=== PATIENT | female | born 1955 | race Caucasian/White ===

== ENCOUNTER 2021-01-06 09:39 | Outpatient (CLI) | payer MEDICARE | END 2021-01-06 09:40 | disposition home or self-care (01) | LOC: CSHWCC 09:39 | PROVIDERS: ATTEND Nurse Practitioner Family | DX: I87.2 Venous insufficiency (chronic) (peripheral) (principal); T81.30XD Disruption of wound, unspecified, subsequent encounter; S81.801D Unspecified open wound, right lower leg, subsequent encounter; S51.801D Unspecified open wound of right forearm, subsequent encounter; G89.29 Other chronic pain; J45.909 Unspecified asthma, uncomplicated; L76.32 Postprocedural hematoma of skin and subcutaneous tissue following other procedure; M06.9 Rheumatoid arthritis, unspecified; R60.0 Localized edema; X58.XXXD Exposure to other specified factors, subsequent encounter | CPT/HCPCS: 11042; 11045; 29581; 97139; G0463; 99213 ==

== ENCOUNTER 2021-01-09 11:34 | Outpatient (CLI) | payer MEDICARE | END 2021-01-09 11:35 | disposition home or self-care (01) | LOC: CSHWCC 11:34 | PROVIDERS: ATTEND Nurse Practitioner Family | DX: I87.2 Venous insufficiency (chronic) (peripheral) (principal); T81.30XD Disruption of wound, unspecified, subsequent encounter; S51.801D Unspecified open wound of right forearm, subsequent encounter; S81.801D Unspecified open wound, right lower leg, subsequent encounter; L76.32 Postprocedural hematoma of skin and subcutaneous tissue following other procedure; R60.0 Localized edema; G89.29 Other chronic pain; J45.909 Unspecified asthma, uncomplicated; M06.9 Rheumatoid arthritis, unspecified; X58.XXXD Exposure to other specified factors, subsequent encounter | CPT/HCPCS: 11042; 11045; 29581 ==

== ENCOUNTER 2021-01-12 09:02 | Outpatient (CLI) | payer MEDICARE | END 2021-01-12 09:03 | disposition home or self-care (01) | LOC: CSHWCC 09:02 | PROVIDERS: ATTEND Nurse Practitioner Family | DX: T81.30XD Disruption of wound, unspecified, subsequent encounter (principal); S81.801D Unspecified open wound, right lower leg, subsequent encounter; G89.29 Other chronic pain; I87.2 Venous insufficiency (chronic) (peripheral); J45.909 Unspecified asthma, uncomplicated; L76.32 Postprocedural hematoma of skin and subcutaneous tissue following other procedure; M06.9 Rheumatoid arthritis, unspecified; X58.XXXD Exposure to other specified factors, subsequent encounter | CPT/HCPCS: 29581; 99213; G0463 ==

== ENCOUNTER 2021-01-17 11:11 | Outpatient (CLI) | payer MEDICARE | END 2021-01-17 11:12 | disposition home or self-care (01) | LOC: CSHWCC 11:11 | PROVIDERS: ATTEND Nurse Practitioner Family | DX: S81.801D Unspecified open wound, right lower leg, subsequent encounter (principal); T81.30XD Disruption of wound, unspecified, subsequent encounter; S51.801D Unspecified open wound of right forearm, subsequent encounter; R60.0 Localized edema; G89.29 Other chronic pain; I87.2 Venous insufficiency (chronic) (peripheral); J45.909 Unspecified asthma, uncomplicated; L76.32 Postprocedural hematoma of skin and subcutaneous tissue following other procedure; M06.9 Rheumatoid arthritis, unspecified; X58.XXXD Exposure to other specified factors, subsequent encounter | CPT/HCPCS: 11042; 11045; 29581; 97139; G0463; 99213 ==

== ENCOUNTER 2021-01-19 09:44 | Outpatient (CLI) | payer MEDICARE | END 2021-01-19 09:45 | disposition home or self-care (01) | LOC: CSHWCC 09:44 | PROVIDERS: ATTEND Nurse Practitioner Family | DX: S81.801D Unspecified open wound, right lower leg, subsequent encounter (principal); T81.30XD Disruption of wound, unspecified, subsequent encounter; S51.801D Unspecified open wound of right forearm, subsequent encounter; I87.2 Venous insufficiency (chronic) (peripheral); G89.29 Other chronic pain; J45.909 Unspecified asthma, uncomplicated; L76.32 Postprocedural hematoma of skin and subcutaneous tissue following other procedure; M06.9 Rheumatoid arthritis, unspecified; X58.XXXD Exposure to other specified factors, subsequent encounter | CPT/HCPCS: 29581; 97139; G0463; 99212 ==

== ENCOUNTER 2021-01-24 09:39 | Outpatient (CLI) | payer MEDICARE | END 2021-01-24 09:40 | disposition home or self-care (01) | LOC: CSHWCC 09:39 | PROVIDERS: ATTEND Nurse Practitioner Family | DX: I87.2 Venous insufficiency (chronic) (peripheral) (principal); T81.30XD Disruption of wound, unspecified, subsequent encounter; S81.801D Unspecified open wound, right lower leg, subsequent encounter; S51.801D Unspecified open wound of right forearm, subsequent encounter; L76.32 Postprocedural hematoma of skin and subcutaneous tissue following other procedure; R60.0 Localized edema; G89.29 Other chronic pain; J45.909 Unspecified asthma, uncomplicated; M06.9 Rheumatoid arthritis, unspecified; X58.XXXD Exposure to other specified factors, subsequent encounter | CPT/HCPCS: 11042; 11045; 29581; 97139; G0463; 99212 ==

== ENCOUNTER 2021-01-26 10:50 | Outpatient (CLI) | payer MEDICARE | END 2021-01-26 10:51 | disposition home or self-care (01) | LOC: CSHWCC 10:50 | PROVIDERS: ATTEND Nurse Practitioner Family | DX: I87.2 Venous insufficiency (chronic) (peripheral) (principal); S81.801D Unspecified open wound, right lower leg, subsequent encounter; S51.801D Unspecified open wound of right forearm, subsequent encounter; T81.30XD Disruption of wound, unspecified, subsequent encounter; R60.0 Localized edema; G89.29 Other chronic pain; J45.909 Unspecified asthma, uncomplicated; L76.32 Postprocedural hematoma of skin and subcutaneous tissue following other procedure; M06.9 Rheumatoid arthritis, unspecified; X58.XXXD Exposure to other specified factors, subsequent encounter | CPT/HCPCS: 29581; 97139; G0463; 99213 ==

== ENCOUNTER 2021-01-31 12:20 | Outpatient (CLI) | payer MEDICARE | END 2021-01-31 12:21 | disposition home or self-care (01) | LOC: CSHWCC 12:20 | PROVIDERS: ATTEND Nurse Practitioner Family | DX: T81.30XS Disruption of wound, unspecified, sequela (principal); S81.801D Unspecified open wound, right lower leg, subsequent encounter; G89.29 Other chronic pain; I87.2 Venous insufficiency (chronic) (peripheral); J45.909 Unspecified asthma, uncomplicated; L76.32 Postprocedural hematoma of skin and subcutaneous tissue following other procedure; M06.9 Rheumatoid arthritis, unspecified; R60.0 Localized edema; X58.XXXS Exposure to other specified factors, sequela | CPT/HCPCS: 29581; 97139; G0463; 99213 ==

== ENCOUNTER 2021-02-02 11:25 | Outpatient (CLI) | payer MEDICARE | END 2021-02-02 11:26 | disposition home or self-care (01) | LOC: CSHWCC 11:25 | PROVIDERS: ATTEND Nurse Practitioner Family | DX: S81.801D Unspecified open wound, right lower leg, subsequent encounter (principal); S51.801D Unspecified open wound of right forearm, subsequent encounter; T81.30XD Disruption of wound, unspecified, subsequent encounter; R60.0 Localized edema; G89.29 Other chronic pain; I87.2 Venous insufficiency (chronic) (peripheral); J45.909 Unspecified asthma, uncomplicated; L76.32 Postprocedural hematoma of skin and subcutaneous tissue following other procedure; M06.9 Rheumatoid arthritis, unspecified; X58.XXXD Exposure to other specified factors, subsequent encounter | CPT/HCPCS: 29581; 97139; G0463; 99213 ==

== ENCOUNTER 2021-02-06 11:52 | Outpatient (CLI) | payer MEDICARE | END 2021-02-06 11:53 | disposition home or self-care (01) | LOC: CSHWCC 11:52 | PROVIDERS: ATTEND Nurse Practitioner Family | DX: S81.801D Unspecified open wound, right lower leg, subsequent encounter (principal); R60.0 Localized edema; G89.29 Other chronic pain; I87.2 Venous insufficiency (chronic) (peripheral); J45.909 Unspecified asthma, uncomplicated; L76.32 Postprocedural hematoma of skin and subcutaneous tissue following other procedure; M06.9 Rheumatoid arthritis, unspecified; S51.801D Unspecified open wound of right forearm, subsequent encounter; T81.30XD Disruption of wound, unspecified, subsequent encounter; X58.XXXD Exposure to other specified factors, subsequent encounter | CPT/HCPCS: 29581; 99213; G0463 ==

== ENCOUNTER 2021-02-09 08:46 | Outpatient (CLI) | payer MEDICARE | END 2021-02-09 08:47 | disposition home or self-care (01) | LOC: CSHWCC 08:46 | PROVIDERS: ATTEND Nurse Practitioner Family | DX: I87.2 Venous insufficiency (chronic) (peripheral) (principal); T81.30XD Disruption of wound, unspecified, subsequent encounter; S81.801D Unspecified open wound, right lower leg, subsequent encounter; S51.801D Unspecified open wound of right forearm, subsequent encounter; L76.32 Postprocedural hematoma of skin and subcutaneous tissue following other procedure; J45.909 Unspecified asthma, uncomplicated; M06.9 Rheumatoid arthritis, unspecified; G89.29 Other chronic pain; X58.XXXD Exposure to other specified factors, subsequent encounter | CPT/HCPCS: 29581; 99214; G0463 ==

== ENCOUNTER 2021-02-13 15:30 | Outpatient (CLI) | payer MEDICARE | END 2021-02-13 15:31 | disposition home or self-care (01) | LOC: CSHWCC 15:30 | PROVIDERS: ATTEND Nurse Practitioner Family | DX: I87.2 Venous insufficiency (chronic) (peripheral) (principal); T81.30XD Disruption of wound, unspecified, subsequent encounter; S81.801D Unspecified open wound, right lower leg, subsequent encounter; S51.801D Unspecified open wound of right forearm, subsequent encounter; L76.32 Postprocedural hematoma of skin and subcutaneous tissue following other procedure; R60.0 Localized edema; G89.29 Other chronic pain; J45.909 Unspecified asthma, uncomplicated; M06.9 Rheumatoid arthritis, unspecified; X58.XXXD Exposure to other specified factors, subsequent encounter | CPT/HCPCS: 29581; 99213; G0463 ==

== ENCOUNTER 2021-02-16 11:21 | Outpatient (CLI) | payer MEDICARE | END 2021-02-16 11:22 | disposition home or self-care (01) | LOC: CSHWCC 11:21 | PROVIDERS: ATTEND Nurse Practitioner Family | DX: S81.801D Unspecified open wound, right lower leg, subsequent encounter (principal); T81.30XD Disruption of wound, unspecified, subsequent encounter; S51.801D Unspecified open wound of right forearm, subsequent encounter; R60.0 Localized edema; G89.29 Other chronic pain; I87.2 Venous insufficiency (chronic) (peripheral); J45.909 Unspecified asthma, uncomplicated; L76.32 Postprocedural hematoma of skin and subcutaneous tissue following other procedure; M06.9 Rheumatoid arthritis, unspecified; X58.XXXD Exposure to other specified factors, subsequent encounter ==

== ENCOUNTER 2021-02-20 09:05 | Outpatient (CLI) | payer MEDICARE | END 2021-02-20 09:06 | disposition home or self-care (01) | LOC: CSHWCC 09:05 | PROVIDERS: ATTEND Nurse Practitioner Family | DX: S81.801D Unspecified open wound, right lower leg, subsequent encounter (principal); T81.30XD Disruption of wound, unspecified, subsequent encounter; S51.801D Unspecified open wound of right forearm, subsequent encounter; R60.0 Localized edema; G89.29 Other chronic pain; I87.2 Venous insufficiency (chronic) (peripheral); J45.909 Unspecified asthma, uncomplicated; L76.32 Postprocedural hematoma of skin and subcutaneous tissue following other procedure; M06.9 Rheumatoid arthritis, unspecified; X58.XXXD Exposure to other specified factors, subsequent encounter ==

== ENCOUNTER 2021-03-01 12:16 | Outpatient (CLI) | payer MEDICARE | END 2021-03-01 12:17 | disposition home or self-care (01) | LOC: CSHWCC 12:16 | PROVIDERS: ATTEND Nurse Practitioner Family | DX: T81.30XD Disruption of wound, unspecified, subsequent encounter (principal); S81.801D Unspecified open wound, right lower leg, subsequent encounter; S51.801D Unspecified open wound of right forearm, subsequent encounter; R60.0 Localized edema; I87.2 Venous insufficiency (chronic) (peripheral); J45.909 Unspecified asthma, uncomplicated; L76.32 Postprocedural hematoma of skin and subcutaneous tissue following other procedure; M06.9 Rheumatoid arthritis, unspecified; X58.XXXD Exposure to other specified factors, subsequent encounter | CPT/HCPCS: 29581; 99213; G0463 ==

== ENCOUNTER 2021-05-24 09:27 | Outpatient (CLI) | payer MEDICARE | END 2021-05-24 09:28 | disposition home or self-care (01) | LOC: CSHWCC 09:27 | PROVIDERS: ATTEND Nurse Practitioner Family | DX: T81.30XS Disruption of wound, unspecified, sequela (principal); S81.801D Unspecified open wound, right lower leg, subsequent encounter; R60.0 Localized edema; I87.2 Venous insufficiency (chronic) (peripheral); G89.29 Other chronic pain; J45.909 Unspecified asthma, uncomplicated; L76.32 Postprocedural hematoma of skin and subcutaneous tissue following other procedure; M06.9 Rheumatoid arthritis, unspecified; X58.XXXS Exposure to other specified factors, sequela | CPT/HCPCS: 99212; G0463 ==

== ENCOUNTER 2021-08-04 10:49 | Outpatient (CLI) | payer MEDICARE | END 2021-08-04 10:50 | disposition home or self-care (01) | LOC: CSHWCC 10:49 | PROVIDERS: ATTEND Nurse Practitioner Family | DX: S51.801D Unspecified open wound of right forearm, subsequent encounter (principal); S41.002D Unspecified open wound of left shoulder, subsequent encounter; T81.30XD Disruption of wound, unspecified, subsequent encounter; B02.9 Zoster without complications; G89.29 Other chronic pain; I87.2 Venous insufficiency (chronic) (peripheral); J45.909 Unspecified asthma, uncomplicated; L76.32 Postprocedural hematoma of skin and subcutaneous tissue following other procedure; M06.9 Rheumatoid arthritis, unspecified; X58.XXXD Exposure to other specified factors, subsequent encounter | CPT/HCPCS: 97139; G0463; 99213 ==

== ENCOUNTER 2021-08-11 09:22 | Outpatient (CLI) | payer MEDICARE | END 2021-08-11 09:23 | disposition home or self-care (01) | LOC: CSHWCC 09:22 | PROVIDERS: ATTEND Nurse Practitioner Family | DX: T81.30XD Disruption of wound, unspecified, subsequent encounter (principal); S51.801D Unspecified open wound of right forearm, subsequent encounter; S41.002D Unspecified open wound of left shoulder, subsequent encounter; L76.32 Postprocedural hematoma of skin and subcutaneous tissue following other procedure; M06.9 Rheumatoid arthritis, unspecified; B02.9 Zoster without complications; I87.2 Venous insufficiency (chronic) (peripheral); G89.29 Other chronic pain; X58.XXXD Exposure to other specified factors, subsequent encounter | CPT/HCPCS: 97139; G0463; 99213 ==

== ENCOUNTER 2021-08-18 09:43 | Outpatient (CLI) | payer MEDICARE | END 2021-08-18 09:44 | disposition home or self-care (01) | LOC: CSHWCC 09:43 | PROVIDERS: ATTEND Nurse Practitioner Family | DX: T81.30XD Disruption of wound, unspecified, subsequent encounter (principal); S51.801D Unspecified open wound of right forearm, subsequent encounter; S41.002D Unspecified open wound of left shoulder, subsequent encounter; B02.9 Zoster without complications; G89.29 Other chronic pain; I87.2 Venous insufficiency (chronic) (peripheral); J45.909 Unspecified asthma, uncomplicated; L76.32 Postprocedural hematoma of skin and subcutaneous tissue following other procedure; M06.9 Rheumatoid arthritis, unspecified; X58.XXXD Exposure to other specified factors, subsequent encounter | CPT/HCPCS: 97139; G0463; 99213 ==

== ENCOUNTER 2021-09-01 08:20 | Outpatient (CLI) | payer MEDICARE | END 2021-09-01 08:21 | disposition home or self-care (01) | LOC: CSHWCC 08:20 | PROVIDERS: ATTEND Nurse Practitioner Family | DX: T81.30XD Disruption of wound, unspecified, subsequent encounter (principal); S41.002D Unspecified open wound of left shoulder, subsequent encounter; S51.801D Unspecified open wound of right forearm, subsequent encounter; B02.9 Zoster without complications; G89.29 Other chronic pain; I87.2 Venous insufficiency (chronic) (peripheral); J45.909 Unspecified asthma, uncomplicated; L76.32 Postprocedural hematoma of skin and subcutaneous tissue following other procedure; M06.9 Rheumatoid arthritis, unspecified; X58.XXXD Exposure to other specified factors, subsequent encounter | CPT/HCPCS: 99212; G0463 ==

== ENCOUNTER 2021-09-26 10:06 | Outpatient (CLI) | payer MEDICARE | END 2021-09-26 10:07 | disposition home or self-care (01) | LOC: CSHMAMMO 10:06 | PROVIDERS: ATTEND Family Medicine | DX: Z12.31 Encounter for screening mammogram for malignant neoplasm of breast (principal) | CPT/HCPCS: 77063; 77067 ==

== ENCOUNTER 2023-01-29 11:53 | Outpatient (CLI) | payer MEDICARE, OTHER | END 2023-01-29 11:54 | disposition home or self-care (01) | LOC: CSHMAMMO 11:53 | PROVIDERS: ATTEND Family Medicine | DX: Z12.31 Encounter for screening mammogram for malignant neoplasm of breast (principal); Z91.89 Other specified personal risk factors, not elsewhere classified | CPT/HCPCS: 77063; 77067 ==

== ENCOUNTER 2023-03-20 12:51 | Outpatient (CLI) | payer MEDICARE, OTHER | END 2023-03-20 12:52 | disposition home or self-care (01) | LOC: CSHRAD 12:51 | PROVIDERS: ATTEND Internal Medicine Rheumatology | DX: M25.551 Pain in right hip (principal); M81.0 Age-related osteoporosis without current pathological fracture ==

== ENCOUNTER 2023-03-25 13:50 | Outpatient (CLI) | payer MEDICARE, OTHER | END 2023-03-25 13:51 | disposition home or self-care (01) | LOC: CSHWCC 13:50 | PROVIDERS: ATTEND Nurse Practitioner Family | DX: S71.102D Unspecified open wound, left thigh, subsequent encounter (principal) | CPT/HCPCS: 11042; 97139; G0463; 99213 ==

== ENCOUNTER 2023-04-09 12:59 | Outpatient (CLI) | payer MEDICARE, OTHER | END 2023-04-09 13:00 | disposition home or self-care (01) | LOC: CSHWCC 12:59 | PROVIDERS: ATTEND Nurse Practitioner Family | DX: S71.102D Unspecified open wound, left thigh, subsequent encounter (principal) | CPT/HCPCS: 97597 ==

== ENCOUNTER 2023-05-27 12:11 | Outpatient (CLI) | payer MEDICARE, OTHER | END 2023-05-27 12:12 | disposition home or self-care (01) | LOC: CSHRAD 12:11 | PROVIDERS: ATTEND Internal Medicine Rheumatology | DX: M25.522 Pain in left elbow (principal) ==

== ENCOUNTER 2023-07-20 17:22 | Emergency (ER) | payer MEDICARE, OTHER ==
[2023-07-20] MEDS ORDERED: Morphine 4 MG/ML VIAL ONE ×3 (18:02→18:53)
[2023-07-20 18:29] LABS: #Eosinphils 0.1 10x3/uL (0.0-0.5); #Monocytes 0.8 10x3/uL (0.0-1.1); #Neutrophils 4.2 10x3/uL (1.5-8.4); %Basophils 0.4 % (0.0-2.0); %Eosinophils 1.8 % (0.0-6.0); %Lymphocytes 26.6 % (18.0-47.0); %Monocytes 11.8 % (0.0-10.0); %Neutrophils 59.3 % (40.0-75.0); Hematocrit 39.6 % (34.9-44.5); Hemoglobin 13.1 g/dL (12.0-15.5); Mean Corpuscular HGB CONC 33.1 g/dL (32.0-36.0); Mean Corpuscular Hemoglobin 28.5 pg (27.0-33.0); Mean Corpuscular Volume 86.3 fl (81.6-98.3); Mean Platelet Volume 10.1 fl (7.4-10.4); Platelet Count 320 10x3/uL (150-450); RBC Distribution Width 14.1 % (11.5-14.5); Red Blood Cell (RBC) Count 4.59 10x6/uL (3.90-5.03)
[2023-07-20] MEDS ORDERED: Lidocaine 1% (PF) 30 ML VIAL ONE (18:29)
[2023-07-20 18:40] LABS: ALT (SGPT) 22 U/L (8-55); AST (SGOT) 30 U/L (5-34); Albumin 3.9 g/dL (3.4-4.8); Alkaline Phosphatase 105 U/L (40-110); Anion Gap 17 mmol/L (10-20); BUN (Urea Nitrogen) 17 mg/dL (9.8-20.1); Bilirubin, Total 0.3 mg/dL (0.2-1.2); Calc. Creatinine Clearance 0 mL/min (70-130); Carbon Dioxide 24 mmol/L (23-31); Chloride 103 mmol/L (98-107); Estimated GFR 72; Globulin 2.9 g/dL (2.4-3.5); Glucose 103 mg/dL (80-115); Magnesium 2.2 mg/dL (1.6-2.6); Potassium 3.9 mmol/L (3.5-5.1); Protein, Total 6.8 g/dL (5.8-8.1); Sodium 140 mmol/L (136-145)
[2023-07-20] MEDS ORDERED: Lidocaine 1% w/Epinephrine 1:200K 30 ML VIAL ONE (18:57)
[2023-07-20] MEDS ORDERED: CEFAZOLIN 2 GM VIAL ONE (19:17)
[2023-07-20] MEDS ORDERED: Ondansetron PF 4 MG/2 ML Vial ONE (20:30)
== END 2023-07-20 21:02 | disposition home or self-care (01) ==
LOC: CSHERS 17:22
DX: S80.12XA Contusion of left lower leg, initial encounter (principal); D68.32 Hemorrhagic disorder due to extrinsic circulating anticoagulants; I48.91 Unspecified atrial fibrillation; I10 Essential (primary) hypertension; M06.9 Rheumatoid arthritis, unspecified; J45.909 Unspecified asthma, uncomplicated; W22.8XXA Striking against or struck by other objects, initial encounter; Y93.89 Activity, other specified; Z79.01 Long term (current) use of anticoagulants; Z79.899 Other long term (current) drug therapy
CPT/HCPCS: 10060; 80053; 83735; 85025; 86850; 86900; 86901; 96365; 96375; 96376; J2001; J2270; J2405

== ENCOUNTER 2023-07-26 10:19 | Outpatient (CLI) | payer MEDICARE, OTHER | END 2023-07-26 10:20 | disposition home or self-care (01) | LOC: CSHWCC 10:19 | PROVIDERS: ATTEND Physician Assistant | DX: T14.8XXD Other injury of unspecified body region, subsequent encounter (principal); Z79.01 Long term (current) use of anticoagulants | CPT/HCPCS: 99212; G0463 ==

== ENCOUNTER 2023-07-29 09:00 | Outpatient (CLI) | payer MEDICARE, OTHER | END 2023-07-29 09:01 | disposition home or self-care (01) | LOC: CSHWCC 09:00 | PROVIDERS: ATTEND Physician Assistant | DX: T14.8XXD Other injury of unspecified body region, subsequent encounter (principal); Z79.01 Long term (current) use of anticoagulants | CPT/HCPCS: 97602 ==

== ENCOUNTER 2023-07-31 09:09 | Outpatient (CLI) | payer MEDICARE, OTHER | END 2023-07-31 09:10 | disposition home or self-care (01) | LOC: CSHWCC 09:09 | PROVIDERS: ATTEND Physician Assistant | DX: T81.33XD Disruption of traumatic injury wound repair, subsequent encounter (principal); Z79.01 Long term (current) use of anticoagulants | CPT/HCPCS: 97602 ==

== ENCOUNTER 2023-08-02 14:16 | Outpatient (CLI) | payer MEDICARE, OTHER | END 2023-08-02 14:17 | disposition home or self-care (01) | LOC: CSHWCC 14:16 | PROVIDERS: ATTEND Physician Assistant | DX: T81.33XD Disruption of traumatic injury wound repair, subsequent encounter (principal); T14.8XXD Other injury of unspecified body region, subsequent encounter; Z79.01 Long term (current) use of anticoagulants | CPT/HCPCS: 97597; 97598 ==

== ENCOUNTER 2023-08-05 09:15 | Outpatient (CLI) | payer MEDICARE, OTHER | END 2023-08-05 09:16 | disposition home or self-care (01) | LOC: CSHWCC 09:15 | PROVIDERS: ATTEND Physician Assistant | DX: T14.8XXD Other injury of unspecified body region, subsequent encounter (principal); Z79.01 Long term (current) use of anticoagulants | CPT/HCPCS: 97597; 97598 ==

== ENCOUNTER 2023-08-05 09:17 | Outpatient (CLI) | payer MEDICARE, OTHER | END 2023-08-05 09:18 | disposition home or self-care (01) | LOC: CSHWCC 09:17 | PROVIDERS: ATTEND Physician Assistant | DX: T14.8XXD Other injury of unspecified body region, subsequent encounter (principal); Z79.01 Long term (current) use of anticoagulants | CPT/HCPCS: 97597; G0463; 97598; 99213 ==

== ENCOUNTER → 2023-08-07 | Outpatient (CLI) | payer MEDICARE, OTHER | LOC: CSHWCC 08:00 | PROVIDERS: ATTEND Physician Assistant | DX: T14.8XXA Other injury of unspecified body region, initial encounter (principal); Z79.01 Long term (current) use of anticoagulants | CPT/HCPCS: 97597; 97598 ==

== ENCOUNTER 2023-08-09 08:07 | Outpatient (CLI) | payer MEDICARE, OTHER | END 2023-08-09 08:08 | disposition home or self-care (01) | LOC: CSHWCC 08:07 | PROVIDERS: ATTEND Physician Assistant | DX: T14.8XXD Other injury of unspecified body region, subsequent encounter (principal) | CPT/HCPCS: 29581 ==

== ENCOUNTER 2023-08-13 08:21 | Outpatient (CLI) | payer MEDICARE, OTHER | END 2023-08-13 08:22 | disposition home or self-care (01) | LOC: CSHWCC 08:21 | PROVIDERS: ATTEND Physician Assistant | DX: Z51.81 Encounter for therapeutic drug level monitoring (principal); T14.8XXA Other injury of unspecified body region, initial encounter; Z79.01 Long term (current) use of anticoagulants | CPT/HCPCS: 29581 ==

== ENCOUNTER 2023-08-15 08:09 | Outpatient (CLI) | payer MEDICARE, OTHER | END 2023-08-15 08:10 | disposition home or self-care (01) | LOC: CSHWCC 08:09 | PROVIDERS: ATTEND Physician Assistant | DX: T14.8XXD Other injury of unspecified body region, subsequent encounter (principal); M05.69 Rheumatoid arthritis of multiple sites with involvement of other organs and systems; Z79.01 Long term (current) use of anticoagulants | CPT/HCPCS: 97597 ==

== ENCOUNTER 2023-08-20 10:35 | Outpatient (CLI) | payer MEDICARE, OTHER | END 2023-08-20 10:36 | disposition home or self-care (01) | LOC: CSHWCC 10:35 | PROVIDERS: ATTEND Physician Assistant | DX: T14.8XXD Other injury of unspecified body region, subsequent encounter (principal); M05.69 Rheumatoid arthritis of multiple sites with involvement of other organs and systems; Z79.01 Long term (current) use of anticoagulants | CPT/HCPCS: 29581 ==

== ENCOUNTER 2023-08-26 08:07 | Outpatient (CLI) | payer MEDICARE, OTHER | END 2023-08-26 08:08 | disposition home or self-care (01) | LOC: CSHWCC 08:07 | PROVIDERS: ATTEND Preventive Medicine Undersea and Hyperbaric Medicine | DX: T14.8XXD Other injury of unspecified body region, subsequent encounter (principal); M05.69 Rheumatoid arthritis of multiple sites with involvement of other organs and systems; Z79.01 Long term (current) use of anticoagulants | CPT/HCPCS: 29581 ==

== ENCOUNTER 2023-08-29 10:08 | Outpatient (CLI) | payer MEDICARE, OTHER | END 2023-08-29 10:09 | disposition home or self-care (01) | LOC: CSHWCC 10:08 | PROVIDERS: ATTEND Preventive Medicine Undersea and Hyperbaric Medicine | DX: T14.8XXD Other injury of unspecified body region, subsequent encounter (principal); M05.69 Rheumatoid arthritis of multiple sites with involvement of other organs and systems; Z79.01 Long term (current) use of anticoagulants | CPT/HCPCS: 29581 ==

== ENCOUNTER 2023-09-03 11:32 | Outpatient (CLI) | payer MEDICARE, OTHER | END 2023-09-03 11:33 | disposition home or self-care (01) | LOC: CSHWCC 11:32 | PROVIDERS: ATTEND Physician Assistant | DX: T14.8XXD Other injury of unspecified body region, subsequent encounter (principal); M05.69 Rheumatoid arthritis of multiple sites with involvement of other organs and systems; Z79.01 Long term (current) use of anticoagulants | CPT/HCPCS: 29581 ==

== ENCOUNTER 2023-09-10 10:27 | Outpatient (CLI) | payer MEDICARE, OTHER | END 2023-09-10 10:28 | disposition home or self-care (01) | LOC: CSHWCC 10:27 | PROVIDERS: ATTEND Physician Assistant | DX: T14.8XXD Other injury of unspecified body region, subsequent encounter (principal); M05.69 Rheumatoid arthritis of multiple sites with involvement of other organs and systems; Z79.01 Long term (current) use of anticoagulants | CPT/HCPCS: 29581 ==

== ENCOUNTER 2023-09-17 10:01 | Outpatient (CLI) | payer MEDICARE, OTHER | END 2023-09-17 10:02 | disposition home or self-care (01) | LOC: CSHWCC 10:01 | PROVIDERS: ATTEND Physician Assistant | DX: T14.8XXD Other injury of unspecified body region, subsequent encounter (principal); M05.69 Rheumatoid arthritis of multiple sites with involvement of other organs and systems; Z79.01 Long term (current) use of anticoagulants | CPT/HCPCS: 29581; G0463; 99212 ==

== ENCOUNTER 2023-10-09 09:25 | Outpatient (CLI) | payer MEDICARE, OTHER | END 2023-10-09 09:26 | disposition home or self-care (01) | LOC: CSHWCC 09:25 | PROVIDERS: ATTEND Preventive Medicine Undersea and Hyperbaric Medicine | DX: T14.8XXD Other injury of unspecified body region, subsequent encounter (principal); M05.69 Rheumatoid arthritis of multiple sites with involvement of other organs and systems; Z79.01 Long term (current) use of anticoagulants | CPT/HCPCS: 29581 ==

== ENCOUNTER 2023-10-16 10:17 | Outpatient (CLI) | payer MEDICARE, OTHER | END 2023-10-16 10:18 | disposition home or self-care (01) | LOC: CSHWCC 10:17 | PROVIDERS: ATTEND Preventive Medicine Undersea and Hyperbaric Medicine | DX: T14.8XXA Other injury of unspecified body region, initial encounter (principal); M05.69 Rheumatoid arthritis of multiple sites with involvement of other organs and systems; Z79.01 Long term (current) use of anticoagulants | CPT/HCPCS: 87070; 87077; 87186; 87205 ==

== ENCOUNTER 2023-10-16 12:35 | Outpatient (CLI) | payer MEDICARE, OTHER | END 2023-10-16 12:36 | disposition home or self-care (01) | LOC: CSHRAD 12:35 | PROVIDERS: ATTEND Family Medicine | DX: M54.2 Cervicalgia (principal); Z98.890 Other specified postprocedural states; M47.812 Spondylosis without myelopathy or radiculopathy, cervical region | CPT/HCPCS: 72040 ==

== ENCOUNTER 2023-10-21 08:59 | Outpatient (CLI) | payer MEDICARE, OTHER | END 2023-10-21 09:00 | disposition home or self-care (01) | LOC: CSHWCC 08:59 | PROVIDERS: ATTEND Physician Assistant | DX: T14.8XXD Other injury of unspecified body region, subsequent encounter (principal); M05.69 Rheumatoid arthritis of multiple sites with involvement of other organs and systems; Z79.01 Long term (current) use of anticoagulants | CPT/HCPCS: 29581 ==

== ENCOUNTER 2023-10-23 10:10 | Outpatient (CLI) | payer MEDICARE, OTHER | END 2023-10-23 10:11 | disposition home or self-care (01) | LOC: CSHWCC 10:10 | PROVIDERS: ATTEND Physician Assistant | DX: T14.8XXD Other injury of unspecified body region, subsequent encounter (principal); M05.69 Rheumatoid arthritis of multiple sites with involvement of other organs and systems; Z79.01 Long term (current) use of anticoagulants | CPT/HCPCS: 29581 ==

== ENCOUNTER 2023-10-25 09:59 | Outpatient (CLI) | payer MEDICARE, OTHER | END 2023-10-25 10:00 | disposition home or self-care (01) | LOC: CSHWCC 09:59 | PROVIDERS: ATTEND Physician Assistant | DX: T14.8XXD Other injury of unspecified body region, subsequent encounter (principal); M05.69 Rheumatoid arthritis of multiple sites with involvement of other organs and systems; Z79.01 Long term (current) use of anticoagulants | CPT/HCPCS: 29581 ==

== ENCOUNTER 2023-10-28 15:24 | Outpatient (CLI) | payer MEDICARE, OTHER | END 2023-10-28 15:25 | disposition home or self-care (01) | LOC: CSHWCC 15:24 | PROVIDERS: ATTEND Physician Assistant | DX: T14.8XXD Other injury of unspecified body region, subsequent encounter (principal); M05.69 Rheumatoid arthritis of multiple sites with involvement of other organs and systems; Z79.01 Long term (current) use of anticoagulants | CPT/HCPCS: 29581 ==

== ENCOUNTER 2023-10-30 10:05 | Outpatient (CLI) | payer MEDICARE, OTHER | END 2023-10-30 10:06 | disposition home or self-care (01) | LOC: CSHWCC 10:05 | PROVIDERS: ATTEND Physician Assistant | DX: T14.8XXD Other injury of unspecified body region, subsequent encounter (principal); M05.69 Rheumatoid arthritis of multiple sites with involvement of other organs and systems; Z79.01 Long term (current) use of anticoagulants | CPT/HCPCS: 29581 ==

== ENCOUNTER 2023-11-01 12:26 | Outpatient (CLI) | payer MEDICARE, OTHER | END 2023-11-01 12:27 | disposition home or self-care (01) | LOC: CSHWCC 12:26 | PROVIDERS: ATTEND Nurse Practitioner Family | DX: T14.8XXD Other injury of unspecified body region, subsequent encounter (principal); M05.69 Rheumatoid arthritis of multiple sites with involvement of other organs and systems; Z79.01 Long term (current) use of anticoagulants | CPT/HCPCS: 29581 ==

== ENCOUNTER 2023-11-04 13:49 | Outpatient (CLI) | payer MEDICARE, OTHER | END 2023-11-04 13:50 | disposition home or self-care (01) | LOC: CSHWCC 13:49 | PROVIDERS: ATTEND Nurse Practitioner Family | DX: T14.8XXD Other injury of unspecified body region, subsequent encounter (principal); L97.211 Non-pressure chronic ulcer of right calf limited to breakdown of skin; M05.69 Rheumatoid arthritis of multiple sites with involvement of other organs and systems; Z79.01 Long term (current) use of anticoagulants | CPT/HCPCS: 11042 ==

== ENCOUNTER 2023-11-07 15:43 | Outpatient (CLI) | payer MEDICARE, OTHER | END 2023-11-07 15:44 | disposition home or self-care (01) | LOC: CSHWCC 15:43 | PROVIDERS: ATTEND Nurse Practitioner Family | DX: T14.8XXD Other injury of unspecified body region, subsequent encounter (principal); L97.211 Non-pressure chronic ulcer of right calf limited to breakdown of skin; M05.69 Rheumatoid arthritis of multiple sites with involvement of other organs and systems; Z79.01 Long term (current) use of anticoagulants | CPT/HCPCS: 29581 ==

== ENCOUNTER 2023-11-12 13:04 | Outpatient (CLI) | payer MEDICARE, OTHER | END 2023-11-12 13:05 | disposition home or self-care (01) | LOC: CSHWCC 13:04 | PROVIDERS: ATTEND Nurse Practitioner Family | DX: T14.8XXD Other injury of unspecified body region, subsequent encounter (principal); L97.222 Non-pressure chronic ulcer of left calf with fat layer exposed; M05.69 Rheumatoid arthritis of multiple sites with involvement of other organs and systems; Z79.01 Long term (current) use of anticoagulants | CPT/HCPCS: 11042 ==

== ENCOUNTER 2023-11-14 15:03 | Outpatient (CLI) | payer MEDICARE, OTHER | END 2023-11-14 15:04 | disposition home or self-care (01) | LOC: CSHWCC 15:03 | PROVIDERS: ATTEND Nurse Practitioner Family | DX: L97.222 Non-pressure chronic ulcer of left calf with fat layer exposed (principal); M05.69 Rheumatoid arthritis of multiple sites with involvement of other organs and systems; T14.8XXD Other injury of unspecified body region, subsequent encounter; Z79.01 Long term (current) use of anticoagulants | CPT/HCPCS: 29581 ==

== ENCOUNTER 2023-11-18 15:19 | Outpatient (CLI) | payer MEDICARE, OTHER | END 2023-11-18 15:20 | disposition home or self-care (01) | LOC: CSHWCC 15:19 | PROVIDERS: ATTEND Nurse Practitioner Family | DX: T14.8XXD Other injury of unspecified body region, subsequent encounter (principal); L97.222 Non-pressure chronic ulcer of left calf with fat layer exposed; M05.69 Rheumatoid arthritis of multiple sites with involvement of other organs and systems; Z79.01 Long term (current) use of anticoagulants | CPT/HCPCS: 29581 ==

== ENCOUNTER 2023-11-20 13:18 | Outpatient (CLI) | payer MEDICARE, OTHER | END 2023-11-20 13:19 | disposition home or self-care (01) | LOC: CSHWCC 13:18 | PROVIDERS: ATTEND Nurse Practitioner Family | DX: L97.222 Non-pressure chronic ulcer of left calf with fat layer exposed (principal); M05.69 Rheumatoid arthritis of multiple sites with involvement of other organs and systems; T14.8XXD Other injury of unspecified body region, subsequent encounter; Z79.01 Long term (current) use of anticoagulants | CPT/HCPCS: 11042 ==

== ENCOUNTER 2023-11-25 15:15 | Outpatient (CLI) | payer MEDICARE, OTHER | END 2023-11-25 15:16 | disposition home or self-care (01) | LOC: CSHWCC 15:15 | PROVIDERS: ATTEND Nurse Practitioner Family | DX: L97.222 Non-pressure chronic ulcer of left calf with fat layer exposed (principal); T14.8XXD Other injury of unspecified body region, subsequent encounter; M05.69 Rheumatoid arthritis of multiple sites with involvement of other organs and systems; Z79.01 Long term (current) use of anticoagulants | CPT/HCPCS: 11042 ==

== ENCOUNTER 2023-11-28 10:16 | Outpatient (CLI) | payer MEDICARE, OTHER | END 2023-11-28 10:17 | disposition home or self-care (01) | LOC: CSHWCC 10:16 | PROVIDERS: ATTEND Nurse Practitioner Family | DX: L97.222 Non-pressure chronic ulcer of left calf with fat layer exposed (principal); T14.8XXD Other injury of unspecified body region, subsequent encounter; M05.69 Rheumatoid arthritis of multiple sites with involvement of other organs and systems; Z79.01 Long term (current) use of anticoagulants | CPT/HCPCS: 99213; G0463 ==

== ENCOUNTER 2023-12-09 | Outpatient (CLI) | payer MEDICARE, OTHER | END 2023-12-09 10:08 | disposition home or self-care (01) | DX: T14.8XXD Other injury of unspecified body region, subsequent encounter (principal); L97.222 Non-pressure chronic ulcer of left calf with fat layer exposed; M05.69 Rheumatoid arthritis of multiple sites with involvement of other organs and systems; Z79.01 Long term (current) use of anticoagulants ==

== ENCOUNTER 2024-02-19 11:28 | Outpatient (CLI) | payer MEDICARE, OTHER | END 2024-02-19 11:29 | disposition home or self-care (01) | LOC: CSHMAMMO 11:28 | PROVIDERS: ATTEND Internal Medicine Rheumatology | DX: M81.0 Age-related osteoporosis without current pathological fracture (principal) | CPT/HCPCS: 77080 ==

== ENCOUNTER 2025-06-07 14:38 | Outpatient (CLI) | payer MEDICARE, OTHER | END 2025-06-07 14:39 | disposition home or self-care (01) | LOC: CSHWCC 14:38 | PROVIDERS: ATTEND Nurse Practitioner Family | DX: T81.31XD Disruption of external operation (surgical) wound, not elsewhere classified, subsequent encounter (principal); I87.331 Chronic venous hypertension (idiopathic) with ulcer and inflammation of right lower extremity; L97.511 Non-pressure chronic ulcer of other part of right foot limited to breakdown of skin; M06.9 Rheumatoid arthritis, unspecified | CPT/HCPCS: 11042 ==

== ENCOUNTER 2025-06-21 14:56 | Outpatient (CLI) | payer MEDICARE, OTHER | END 2025-06-21 14:57 | disposition home or self-care (01) | LOC: CSHWCC 14:56 | PROVIDERS: ATTEND Nurse Practitioner Family | DX: T81.31XD Disruption of external operation (surgical) wound, not elsewhere classified, subsequent encounter (principal); I87.331 Chronic venous hypertension (idiopathic) with ulcer and inflammation of right lower extremity; L97.511 Non-pressure chronic ulcer of other part of right foot limited to breakdown of skin; M06.9 Rheumatoid arthritis, unspecified | CPT/HCPCS: 97597 ==